=== PATIENT | male | born 1965 | race Caucasian/White ===

== ENCOUNTER 2017-09-19 12:57 | Emergency (ER) | payer OTHER ==
[~2017-09-19] VITALS: Ht 185.4 cm; Wt 100.0 kg
[2017-09-19 13:20] VITALS: BP 128/84
--- NOTE | 2017-09-19 13:45 | RAD ---
CHEST PA LATERAL Clinical Indication: DIFFICULTY BREATHING Comparison: CT chest dated 09/02/2007. Findings: Normal lung volume. No focal consolidation. Normal pulmonary vasculature. No pleural effusion or pneumothorax. The cardiomediastinal silhouette and great vessels are normal. No acute osseous abnormality. IMPRESSION: No acute cardiopulmonary process.
[2017-09-19] MEDS ORDERED: GUAI600T47 PO (14:32)
[2017-09-19] MEDS ORDERED: AMOX875T PO (14:32)
--- NOTE | 2017-09-19 14:34 | PHYS DOC ---
General Chief Complaint: HEADACHE Stated Complaint: HEADACHE, CONGESTION Time Seen by MD: 12:59 Source: patient Exam Limitations: no limitations Problems: History of Present Illness Initial Comments Patient is a 52-year-old male accompanied to the ED by his with headache and chest congestion. Patient states that he thinks he has pneumonia, he's had it in the past. He states that it started last week with frontal and maxillary headache and nasal congestion, he's had a scratchy throat and productive yellow cough. He feels as though his symptoms have settled down into his chest over the past few days as he feels he's had chest congestion. She had no shortness of breath wheezing or dyspnea on exertion. No measured fevers no body aches and the patient does notice that his facial pressure does change with forward bending. Over-the- counter medications are not helping patient's vital signs in the emergency department are normal. Due to high ED volume chest x-ray was ordered based upon nursing report of the patient's complaints. Timing/Duration: 1 week, getting worse Severity: severe Modifying Factors: worse with movement, improves with rest Associated Symptoms: cough, headaches Allergies: Coded Allergies: No Known Drug Allergies (Unverified , 09/19/17) Past Medical History Medical History: GERD Surgical History: noncontributory Social History Smoker: non-smoker Alcohol: occasionally Drugs: none Review of Systems Constitutional: denies chills, denies diaphoresis, denies fever, malaise EENTM: see HPI Respiratory: see HPI Cardiovascular: denies chest pain, denies palpitations, denies syncope Gastrointestinal: denies abdominal pain, denies nausea, denies vomiting Musculoskeletal: denies back pain, denies muscle pain, denies neck pain Psychiatric/Neurological: headache, denies numbness, denies paresthesia, denies seizure, denies weakness Hematologic/Lymphatic: denies blood clots, denies easy bleeding, denies easy bruising Physical Exam General Appearance: WD/WN, no apparent distress Eyes: bilateral eye normal inspection, bilateral eye PERRL, bilateral eye EOMI Ear, Nose, Throat: other (right sided cauliflower ear noted, frontal and maxillary sinus tenderness, yellow nasal discharge and copious amounts of yellow postnasal drip visualized no oral pharyngeal erythema or exudate and the airway is patent. TMs are normal) Neck: non-tender, supple Respiratory: lungs clear, normal breath sounds, no respiratory distress Cardiovascular: normal peripheral pulses, regular rate, rhythm Gastrointestinal: non tender, soft Back: no CVA tenderness, no vertebral tenderness Extremities: normal range of motion, non-tender, normal inspection (no clubbing or cyanosis), no calf tenderness, pelvis stable Neurologic/Psychiatric: box finisher II-XII nml as tested, no motor/sensory deficits, alert, normal mood/affect, oriented x 3 Skin: normal color, warm/dry Orders, Labs, Meds PATIENT: FRANSISCO HERNANDEZ ACCOUNT: [id number] : 1965 LOCATION: ER AGE: 52 SEX: M EXAM STATUS: REG ER ORD. PHYSICIAN: DIPTI KRAUS DO REASON: DIFFICULTY BREATHING PROCEDURE: CHEST PA & LATERAL CHEST PA LATERAL Clinical Indication: DIFFICULTY BREATHING Comparison: CT chest dated 09/02/2007. Findings: Normal lung volume. No focal consolidation. Normal pulmonary vasculature. No pleural effusion or pneumothorax. The cardiomediastinal silhouette and great vessels are normal. No acute osseous abnormality. IMPRESSION: No acute cardiopulmonary process. DICTATED AND SIGNED BY: SARAH MORALES MD DATE: 09/19/17 1339 CC: TELMA BEASLEY; DIPTI KRAUS DO ~ I discussed [id number] or prescription medications as well as symptomatic treatment at home. I discussed signs and symptoms to monitor as well as urgent indications to return to the emergency department. Patient's questions were answered to his satisfaction and he expressed agreement and understanding of the treatment plan. Departure Time of Disposition: 14:32 Disposition: 01 HOME, SELF-CARE Diagnosis: acute sinusitis Condition: GOOD Patient Instructions: Sinusitis, [id number] Additional Instructions: Aggressive hydration with Gatorade or water. Aapn-[id number]-[id number] Tylenol, ibuprofen, and analgesic throat sprays as necessary. Prescription: Amoxicillin, guaifenesin Follow-up with your doctor in 5-7 days if no improvement. Return to ED with new or changing symptoms. DIPTI KRAUS DO Sep 19, 2017 14:34
== END 2017-09-19 14:41 | disposition home or self-care (01) ==
LOC: ER 12:57
DX: J01.90 Acute sinusitis, unspecified (principal); K21.9 Gastro-esophageal reflux disease without esophagitis
CPT/HCPCS: 71020; 99284

== ENCOUNTER → 2021-03-13 | Day surgery (SDC) | payer OTHER ==
[~2021-03-13] MED LIST: AMOX875T PO; ASCO100019 PO; ASPI-889 PO; BUPIVACAINE-EPI 0.25%-1:200000 MPF 30 ML VIAL. INJ ONE; BUPIVACAINE-EPI 0.25%-1:200000 MPF 30 ML VIAL. ONE; CELE200C PO; CYAN250012 PO; ESOM20CA PO; GLUC-11 PO; GUAI600T47 PO; MAGN250T10 PO; MULT-245 PO; MV-M1TAB7 PO
--- NOTE | 2021-03-13 09:08 | PDOC4 ---
Operative Report DATE March 132020 at 0906 Preop Diagnosis Lower back mass Post-op Diagnosis Same Operation Performed Excision of lower back mass Patient is a 55-year-old gentleman complaining of a mass in his lower back that is gotten bigger over the last couple years occasionally is painful. Procedure of excision of lower back mass was explained to the patient detail was benefits were also discussed including bleeding infection alternatives this procedure also discussed with the patient who seemed understand and gave a verbal written consent to have the procedure performed. Patient was taken to the minors room placed in the prone positioning his lower back was prepped and draped usual sterile fashion using ChloraPrep. An area around the mass was injected with quarter percent Marcaine with epinephrine once this was anesthetized an elliptical incision was made with 15 blade scalpel is carried down through s ubcutaneous tissue, mass was sharply incised with 15 blade scalpel and sent for pathology. Mass size 1 cm incision size 3 cm. Wound was closed in a single layer of 4-0 subcuticular Monocryl Mastisol Steri-Strips and island dressings were applied. Patient tolerated procedure well was discharged home in stable condition all sponge instrument needle counts listed as correct estimated blood loss 5 mL Surgeon Bobby ANESTHESIA PROPOSED: LOCAL Specimen Lower back mass Complications None CASSANDRA RUVALCABA MD Mar 13, 2021 09:08
--- NOTE | 2021-03-13 09:10 | DISCH ---
DISCHARGE INSTRUCTIONS-DC Condition on Discharge Condition on Discharge: Stable Activity after Discharge Activity Instructions for Disc: No restrictions Wound/Incision Care Other wound/incision instructi: May shower in 24 hours Contacting the after DC Call your doctor for: If your condition worsens Follow-Up Follow up with: Dr. Ruvalcaba in 2 weeks CASSANDRA RUVALCABA MD Mar 13, 2021 09:10
[2021-03-13 09:17] VITALS: BP 127/77
--- NOTE | 2021-03-15 18:06 | PATHOLOGY ---
[facility] Accession Number: [id number] . 01 Material submitted: . back - LOWER BACK MASS. Modifiers: lower . 01 Clinical history: . EXCISION LOWER BACK SEBACEOUS CYST . 02 Diagnosis: Skin and subcutaneous tissue, lower back mass excision: - Epidermal inclusion cyst, apparently ruptured, with focal acute and chronic inflammation and foreign body giant cell reaction within surrounding soft tissues. (JPM:[facility] 03/15/2021) [facility] 03/15/2021 1707 Local . 02 Comment: There is no evidence of malignancy. (JPM:[facility] 03/15/2021) . 02 Electronically signed: . Theodore Peguero MD, Pathologist NPI- [id number] . 01 Gross description: . The specimen is received in formalin, labeled "Ronny Garcia, lower back mass". Received is an ellipse of pale richter, grossly unremarkable skin with attached underlying soft tissue measuring 2.2 x 0.6 x 1.0 cm in greatest dimensions. Sectioning reveals a possible previously ruptured cystic structure at the deep margin measuring 0.6 cm. The specimen is longitudinally bisected and entirely submitted in cassette A1. ([facility]AA; 03/14/2021) QAC/QAC 03/14/2021 1308 Local . 02 Pathologist provided ICD-10: L72.0, L98.9 . 02 CPT . 853628 Specimen Comment: A courtesy copy of this report has been sent to [phone], [phone] Specimen Comment: [phone] Specimen Comment: Report sent to / DR BEASLEY Performed at: 01 [facility] [address] [place] [address] [address], [place], [place] [id number] MD Mati Chavarria MD Phone: [phone] Performed at: [address] [id number] MD Theodore Peguero MD Phone: [phone]
--- NOTE | 2021-03-26 08:29 | PDOC1 ---
History of Present Illness Reason for Visit: Lower back mass History of Present Illness 55-year-old gentleman with complaints of enlarging lower back mass Allergies: Coded Allergies: No Known Drug Allergies (Unverified , 03/13/21) Past Medical History Cardiac: No pertinent hx Pulmonary: No pertinent hx GI: No pertinent hx Heme/Onc: No pertinent hx Hepatobiliary: No pertinent hx Psych: No pertinent hx Musculoskeletal: No pertinent hx Rheumatologic: No pertinent hx Infectious disease: No pertinent hx ENT: No pertinent hx Renal/: No pertinent hx Endocrine: No pertinent hx Dermatology: No pertinent hx Past Surgical History: No pertinent history Family History: No pertinent hx Past Social History Smoke: No Alcohol: occassional Drugs: None Lives: with Family Review of Systems Review Of Systems Fourteen system , review of systems has been reviewed. See HPI for pertinent positives and negative responses, other lewis all other systems are negative, non pertinent or non contributory Medications Current Medications Bupivacaine HCl/ Epinephrine Bitart (Sensorcaine-Epi 0.25%-1:469535 Mpf) 30 ml STK-MED ONCE .ROUTE ; Start 03/13/21 at 08:47; Stop 03/13/21 at 08:48; Status DC Bupivacaine HCl/ Epinephrine Bitart (Sensorcaine-Epi 0.25%-1:113327 Mpf) 30 ml STK-MED ONCE INJ Last administered on 03/13/21at 08:56; Start 03/13/21 at 08:56; Stop 03/13/21 at 09:05; Status DC Active Scripts Active Reported Magnesium (Magnesium Oxide) 250 Mg Tablet 225 Mg PO DAILY Cidaflex Tablet (Glucosamine Hcl/Chondr Chen A Na) 1 Each Tablet 1 Tab PO BID 30 Days Vitamin B12 (Cyanocobalamin (Vitamin B-12)) 2,500 Mcg Tab.chew 1,000 Mcg PO DAILY Vitamin C (Ascorbic Acid) 1,000 Mg Tablet 1,000 Mg PO DAILY Vitamin D3 Complete Caplet (Mv-Mn/Iron/Fa/Herbal Cmplx#190) 1 Each Tablet 5,000 Intlu PO DAILY Multi Vitamin Daily (Multivitamin) 1 Each Tablet 1 Tab PO DAILY 30 Days Nexium Capsule (Esomeprazole Magnesium) 20 Mg Capsule.dr 1 Cap PO DAILY Aspirin Ec (Aspirin) 81 Mg Tablet.dr 1 Tab PO DAILY Celebrex (Celecoxib) 200 Mg Capsule 1 Cap PO DAILY Exam General Appearance: Alert, Oriented X3, Cooperative, No acute distress HEENT: Atraumatic, EOMI Respiratory: Clear to auscultation, Normal air movement Heart: Regular rate, No murmurs Abdominal: Normal bowel sounds, Soft, No tenderness Extremities: No edema Skin: No rashes, No breakdown, No significant lesion (Mass on his lower back) Assessment/Plan Assessment/Plan Mass of the lower back plan excision under local COURSE Allergies Coded Allergies Type Severity Reaction Last Updated Verified No Known Drug Allergies 03/13/21 No Justification of Admission: Justification of Admission: Justification of Admission Dx: N/A CASSANDRA RUVALCABA MD March 26, 2021 08:28
== END | disposition home or self-care (01) ==
LOC: SURG 07:45
PROVIDERS: ATTEND Surgery
DX: R22.2 Localized swelling, mass and lump, trunk (principal); L72.0 Epidermal cyst; L98.9 Disorder of the skin and subcutaneous tissue, unspecified; K21.9 Gastro-esophageal reflux disease without esophagitis; Z79.899 Other long term (current) drug therapy; Z79.82 Long term (current) use of aspirin; Z72.89 Other problems related to lifestyle
CPT/HCPCS: 11401; 88304; J3490